=== PATIENT | female | born 1970 | race Caucasian/White ===

== ENCOUNTER → 2024-03-20 12:45 | Outpatient (REF) | payer OTHER, SELFPAY | LOC: HWRAD 12:45 | PROVIDERS: ATTENDING PHYSICIAN Internal Medicine; FAMILY PHYSICIAN Family Medicine | DX: D75.81 Myelofibrosis (principal); R16.1 Splenomegaly, not elsewhere classified | CPT/HCPCS: 76705 ==

== ENCOUNTER → 2024-10-02 11:10 | Outpatient (REF) | payer OTHER, SELFPAY | LOC: WDC 11:10 | PROVIDERS: ATTENDING PHYSICIAN Nurse Practitioner Family | DX: Z12.31 Encounter for screening mammogram for malignant neoplasm of breast (principal) | CPT/HCPCS: 77063; 77067 ==

== ENCOUNTER → 2025-01-13 11:17 | Outpatient (REF) | payer OTHER, MEDICARE, SELFPAY | LOC: RAD 11:17 | PROVIDERS: ATTENDING PHYSICIAN Family Medicine; FAMILY PHYSICIAN Nurse Practitioner Family | DX: M79.645 Pain in left finger(s) (principal) | CPT/HCPCS: 73130 ==

== ENCOUNTER 2025-02-24 23:30 | Emergency (ER) | payer OTHER, MEDICARE, SELFPAY ==
[2025-02-24 23:33] VITALS: BP 146/89
--- NOTE | 2025-02-25 00:01 | ED.GENMED ---
History of Present Illness
General
Chief Complaint: Dental Problem
Source: patient
Exam Limitations: none
Time Seen by Provider: 02/24/25 23:58
Nursing documentation reviewed up to this point in time: agreed with
History of Present Illness
History of Present Illness:
54-year-old female with a past medical history of migraines, primary myelofibrosis, ADHD, anxiety, dental caries who presents to the emergency department today with concerns of left upper dental pain. Patient reports that she is starting to have
this pain a few days ago as well as left-sided facial pain which started to radiate into the head. Patient states that she does have a history of migraines but she has never had a headache this bad before and [id number] medications have not
helped with the headache much. Patient went to her dentist today for the symptoms and she got an exam is determined that she needs her 14 tooth removed. Her dentist started her on clindamycin and gave her information and follow up for [facility] to have
her her teeth pulled in the next 10 days or so. She feels like the left side of her face is swollen. She denies fevers or chills, blurry vision, visual loss, nausea or vomiting, facial erythema, trismus, hoarseness/change in her voice, tongue or lip
swelling.
Past History
Past History
ED Past Medical History: Psychiatric (Anxiety/depression), Other (ADHD), Other (Chronic neck pain) and Other (Reflex sympathetic dystrophy, bilateral carpal tunnel, bilateral leg paresthesias)
ED Past Surgical History: Tonsilectomy
Social History
Tobacco: Smoker
Alcohol: Occasional
Personal: Single
Living: with family
Employment: Employed
Family History
Family History: Other (Mother with ovarian cancer)
Review of Systems
Review of Systems
All Other Systems: ROS reviewed and negative except as documented in HPI and ROS
Phy Exam
Physical Exam
Physical Exam:
General: Patient is well appearing and in no acute distress; non-toxic
Skin: Warm and dry, no facial erythema or swelling
Head: Normocephalic, atraumatic, no facial asymmetry. TMJ joints intact bilaterally.
Eyes: Sclera non-icteric. EOMs intact. PERRLA.
Mouth: Dental caries and mild gingival swelling noted to tooth 14 with no evidence of abscess, no purulent drainage. No bulging, tenderness, or firmness in the submental space. No trismus, normal speech.
Neck: No cervical adenopathy, no preauricular adenopathy
Cardiac: Regular rate and rhythm, no murmurs
Peripheral Vascular: No lower extremity swelling or edema
Pulm: Normal respiratory effort, no wheezes, rales, or rhonchi
Neuro: CN II-XII intact, no focal neurologic deficits.
Psychiatric: Appropriate mood and affect.
Course
Orders/Labs/Results
Orders:
Orders
02/25/25 00:11
IV Insert/Care/Rem.- Treatment PRN
Ketorolac [Toradol] 30 mg IV NOW STA
02/25/25 00:12
CT Facial Bones W/o Iv Contras Urgent
Comment:
Reason For Exam: left sided facial pain/swelling
CT Head W/o Iv Contrast Urgent
Comment:
Reason For Exam: headache, neck pain, visual changes
02/25/25 00:21
Bupivacaine HCl/Epinephrine [Marcaine 0.5% W/Epi [facility]] 1 cartridge INJ OR ONE
02/25/25 00:43
Bupivacaine HCl/Epinephrine [Marcaine 0.5% W/Epi [facility]] 1 cartridge .ROUTE .STK-MED ONE
02/25/25 00:49
Complete Blood Count/With Diff Urgent
Comprehensive Metabolic Panel Urgent
02/25/25 01:08
Metoclopramide [Reglan] 10 mg IV NOW STA
Abnormal Lab Results
02/25/25
00:49
WBC 13.1 H 10^3/uL
(4.8-10.8)
MCH 26.3 L pg
(27.0-31.0)
MCHC 31.9 L g/dL
(33.0-37.0)
RDW 15.5 H %
(11.5-14.5)
Plt Count 904 H 10^3/uL
(130-400)
Abs Immat Gran (auto) 0.2 H 10^3/uL
(0-0.05)
Absolute Neuts (auto) 8.2 H 10^3/uL
(1.4-6.5)
Absolute Monos (auto) 0.9 H 10^3/uL
(0.1-0.6)
Immature Gran % 1.1 H %
(0-0.5)
Chloride 109 H mmol/L
(98-107)
Glucose 113 H mg/dl
(70-99)
02/25/25 00:49
02/25/25 00:49
Vital Signs
Initial and Last Documented VS:
Initial Vital Signs
Temp Pulse Resp BP Pulse Ox
97.9 F 76 20 146/89 99
02/24/25 23:33 02/24/25 23:33 02/24/25 23:33 02/24/25 23:33 02/24/25 23:33
Last Documented Vital Signs
Temp Pulse Resp BP Pulse Ox
97.9 F 56 20 119/77 98
02/24/25 23:33 02/25/25 02:36 02/25/25 02:36 02/25/25 02:36 02/25/25 02:36
MDM/Problems Addressed
Differential Diagnosis Includes:
ddx include dental infection, dental abscess, dental caries, cellulitis, fluid collection, tension headache, migraine headache, space occupying lesion
MDM/Problems Addressed:
54-year-old female with a past medical history of migraines, primary myelofibrosis, ADHD, anxiety, dental caries who presents to the emergency department today with concerns of left upper dental pain. Patient reports that she is starting to have
this pain a few days ago as well as left-sided facial pain which started to radiate into the head. She went to her dentist and was started on clindamycin. She started the clindamycin today and had 3 doses. On physical exam, she is well appearing, in
no acute distress, does have caries and mild gingival swelling noted to tooth 14 with no evidence of abscess, no purulent drainage. No bulging, tenderness, or firmness in the submental space. No trismus, normal speech. Patient's mother has a history
of brain cancer and patient was concerned that she may have this especially since this is a different migraine for her, CT scan of the head obtained which shows no evidence of space-occupying lesion, no bleeding. CT scan of the patient no evidence
of fluid collection. Suspect dental infection with no evidence of dental abscess, patient was numbed with bupivacaine help with pain and she was given a dose of Toradol as well. As well as Reglan for headache. Patient does have a leukocytosis
likely in the setting of infection, she does have a history of primary myelofibrosis patient stable for discharge.
Chronic conditions affecting care:
primary myelofibrosis, migraines, ADHD, anxiety
*Pulse Oximetry
Patient hypoxic: no
*Critical Care Note
Total Time (30-74mins, 75-104mins- exclusive of procedures): Not Applicable
Data Reviewed
Review of Other/Old Records Reveals: Records (Reviewed ER physician documentation from 05/29/2022 patient seen for back pain, no discharge summary [facility] review)
Source: patient and records
ED Attending Note
-
Portions of this chart may have been created with voice recognition software.� Occasional wrong word or��sound alike� substitutions may have occurred due to the inherent limitations of voice recognition software.
Discharge Plan
Departure
Patient Disposition: Home (Routine Discharge)
Date of Disposition: 02/25/25
Time of Disposition: 02:00
Patient with high blood pressure during this ER visit?: Yes
Condition: Good
Discharge Problem:
Dental infection, Migraine
Instructions: Headache in adults - ED discharge instructions, Dental pain - ED discharge instructions, BLOOD PRESSURE
Prescriptions:
No Action
dextroamphetamine-amphetamine 30 MG tablet
30 mg PO BID
Patient Comments:
Patient states ran out of medication one month ago.
indomethacin 50 MG capsule
50 mg PO TID Qty: 15 0RF
gabapentin [Gabarone] 300 MG tablet
300 mg PO TID Qty: 30 0RF
gabapentin 600 MG tablet
600 mg PO TID Qty: 30 0RF
prednisone 50 MG tablet
50 mg PO Daily Qty: 4 0RF
triamcinolone acetonide [Kenalog] 20 GM cream
20 gm TP BID Qty: 1 0RF
Rx Instructions:
apply a thin film to affected areas 2-4 times a day, avoid face/genitals
hydroxyzine HCl 25 MG tablet
25 mg PO QID PRN (Reason: itching) Qty: 30 0RF
prednisone 10 MG tablet
10 mg PO .TAPER Qty: 30 0RF
Rx Instructions:
Take 40mg daily x3days, 30mg daily x3days,
20mg daily x3days, 10mg daily x3days.
hydroxyzine HCl 25 MG tablet
25 mg PO QIDPRN PRN (Reason: itching) Qty: 20 0RF
sulfamethoxazole-trimethoprim 1 TABLET tablet
1 tab PO BID Qty: 14 0RF
prednisone 10 MG tablet
10 mg PO .TAPER Qty: 30 0RF
Rx Instructions:
Take 40mg daily x3days, 30mg daily x3days,
20mg daily x3days, 10mg daily x3days.
methylprednisolone [Medrol (Altaf)] 4 MG tablets,dose pack
4 tab PO . DIRECT Qty: 1 0RF
prednisone 20 MG tablet
40 mg PO DAILY Qty: 8 0RF
diazepam [Valium] 5 mg tablet
5 mg PO BID PRN (Reason: muscle spasm) Qty: 14 0RF
Referrals:
Keya Jiménez MD [Family Provider] -
Activity Restrictions/Additional Instructions:
Your CT scan of the head did not show any evidence of acute bleeding or prior stroke. Your CT scan of your face not show any evidence of a collection of fluid.
Please continue to take your clindamycin. Please call your oral surgeon later today to schedule an appointment.
The bupivacaine should last a few more hours.
Ibuprofen 600 mg every 6 hours as needed for the next few days with food, please do not exceed 3200 mg/day.
PLEASE RETURN TO EMERGENCY DEPARTMENT SHOULD YOU DEVELOP CHEST PAIN, SHORTNESS OF BREATH, DIFFICULTY SWALLOWING, TROUBLE BREATHING, MUFFLED VOICE, ASYMMETRIC FACIAL SWELLING, ELEVATION OF THE TONGUE, DROOLING, OR ANY OTHER SIGNS OR SYMPTOMS
WORRISOME TO YOU.
Interventions
Interventions:
*Risk Screen - Suicide Last Done: 02/24/25 23:33
*General Assessment Last Done: 02/24/25 23:33
*Neglect/Abuse Screening Last Done: 02/24/25 23:33
*ED- Fall Risk Assessment Last Done: 02/25/25 02:36
*ED COVID-19 Vaccine History Last Done: 02/24/25 23:33
*Nursing Disposition Last Done: 02/25/25 02:36
Discharge Date and Time
Discharge Date/Time: 02/25/25 02:35
Print Language: URDU
[2025-02-25] MEDS: MARCAINE 0.5% W/EPI DENTAL CARTDRIDGE 1 CARTRIDGE INJ (00:44)
[2025-02-25] MEDS: TORADOL 30 MG IV (00:49)
[2025-02-25 01:04] LABS: % Basophils 1.2 % (0-2); % Eosinophils 3.5 % (0-6); % Immature Granulocytes 1.1 % (0-0.5); % Lymphocytes 24.3 % (20.5-51.1); % Monocytes 6.9 % (1.7-9.3); Absolute Basophils 0.2 10^3/uL (0-0.2); Absolute Eosinophils 0.5 10^3/uL (0-0.7); Absolute Immature Granulocytes 0.2 10^3/uL (0-0.05); Absolute Lymphocytes 3.2 10^3/uL (1.2-3.4); Absolute Monocytes 0.9 10^3/uL (0.1-0.6); Absolute Neutrophils 8.2 10^3/uL (1.4-6.5); Hematocrit 42.7 % (37.0-47.0); Hemoglobin 13.6 g/dL (12.0-16.0); Mean Corp Hgb Conc. 31.9 g/dL (33.0-37.0); Mean Corpuscular Hgb 26.3 pg (27.0-31.0); Mean Corpuscular Volume 82.6 fL (81.0-99.0); Mean Platelet Volume 9.5 fL (7.4-10.4); Nucleated Red Blood Cells % 0 %; Platelet Count 904 10^3/uL (130-400); Red Blood Cell Count 5.17 10^6/uL (4.20-5.40); Red Cell Dist. Width 15.5 % (11.5-14.5); White Blood Cell Count 13.1 10^3/uL (4.8-10.8)
[2025-02-25] MEDS: REGLAN 10 MG IV (01:14)
[2025-02-25 01:17] LABS: ALT (SGPT) 19 U/L (0-35); AST (SGOT) 21 U/L (14-36); Albumin 4.3 g/dl (3.5-5.0); Alkaline Phosphatase 103 U/L (38-126); Blood Urea Nitrogen 17 mg/dl (7-17); Calcium 9.5 mg/dl (8.4-10.2); Carbon Dioxide 23 mmol/L (22-30); Chloride 109 mmol/L (98-107); Glucose 113 mg/dl (70-99); Sodium 141 mmol/L (135-145); Total Bilirubin 0.4 mg/dl (0.2-1.3); Total Protein 6.7 g/dl (6.3-8.2); eGFR > 60.00
[2025-02-25 02:36] VITALS: BP 119/77
== END 2025-02-25 02:35 | disposition home or self-care (01) ==
LOC: EMR 23:30
PROVIDERS: Physician Assistant; EMERGENCY PHYSICIAN Student in an Organized Health Care Education/Training Program; FAMILY PHYSICIAN Family Medicine
DX: K04.7 Periapical abscess without sinus (principal); G43.909 Migraine, unspecified, not intractable, without status migrainosus; F17.200 Nicotine dependence, unspecified, uncomplicated; G89.29 Other chronic pain
CPT/HCPCS: 96374; 96375; 99284; 70450; 70486; 80053; 85025

== ENCOUNTER → 2025-04-13 07:30 | Outpatient (REF) | payer OTHER, MEDICARE, SELFPAY | LOC: HWRAD 07:30 | PROVIDERS: ATTENDING PHYSICIAN Internal Medicine; FAMILY PHYSICIAN Nurse Practitioner Family | DX: R16.1 Splenomegaly, not elsewhere classified (principal); D75.81 Myelofibrosis | CPT/HCPCS: 76705 ==

== ENCOUNTER → 2025-04-21 13:43 | Outpatient (REF) | payer OTHER, MEDICARE, SELFPAY | LOC: RCS 13:43 | PROVIDERS: ATTENDING PHYSICIAN Nurse Practitioner Family | DX: N76.0 Acute vaginitis (principal); M25.551 Pain in right hip; M25.571 Pain in right ankle and joints of right foot; G89.29 Other chronic pain; F90.2 Attention-deficit hyperactivity disorder, combined type; G47.00 Insomnia, unspecified; R20.2 Paresthesia of skin; M25.572 Pain in left ankle and joints of left foot | CPT/HCPCS: 73502; 73630; 93005 ==

== ENCOUNTER → 2025-05-11 11:35 | Outpatient (REF) | payer MEDICARE, OTHER, SELFPAY | LOC: RAD 11:35 | PROVIDERS: ATTENDING PHYSICIAN Nurse Practitioner Family | DX: M25.572 Pain in left ankle and joints of left foot (principal) | CPT/HCPCS: 73630 ==

== ENCOUNTER 2025-06-30 00:48 | Emergency (ER) | payer MEDICARE, OTHER, SELFPAY ==
[2025-06-30 01:06] VITALS: BP 127/87
--- NOTE | 2025-06-30 04:01 | ED.GENMED ---
History of Present Illness
General
Chief Complaint: Skin Problem
Source: patient
Time Seen by Provider: 06/30/25 03:37
History of Present Illness
History of Present Illness:
55-year-old female presents emergency department with complaints of a rash that she noted on her buttocks, lower legs, right side of her face, and abdomen. This started at least a week ago, and is associated with intense itching. She states that
she thinks it is related to potentially her dog who she sleeps with. She denies chest pain, shortness of breath, abdominal pain, lip or tongue swelling, fever, chills, recent tick bites, drainage, streaking, or other complaints. Patient also notes
that she had a 10-minute episode today where she felt lightheaded and 'panicky' associated with a metallic taste in her mouth, all now fully resolved.
Past History
Past History
ED Past Medical History: Psychiatric (Anxiety/depression), Other (ADHD), Other (Chronic neck pain) and Other (Reflex sympathetic dystrophy, bilateral carpal tunnel, bilateral leg paresthesias)
ED Past Surgical History: Tonsilectomy
Social History
Tobacco: Smoker
Alcohol: Occasional
Drug: None
Personal: Single
Living: with family
Employment: Employed
Family History
Family History: Other (Mother with ovarian cancer)
Phy Exam
Physical Exam
Physical Exam:
GENERAL: Alert , in no apparent distress
EYE: pupils equal and reactive
NECK: Supple, no significant adenopathy.
ENT: o/p clr, mmm.
CARDIAC: Regular rate and rhythm .
LUNGS: Clear breath sounds bilaterally, no acute respiratory distress, no wheezes/rales/rhonchi
ABDOMEN: Soft, without focal tenderness, no r/g, no cvat
NEUROLOGICAL: Alert and oriented, no focal neuro deficits
SKIN: Warm and dry, there are areas of folliculitis noted at the buttock area bilaterally without associated fluctuance, drainage, open wounds, streaking, or other abnormalities. On the lower extremity, patient has healing scabs bilaterally which I
suspect is related to scratching without secondary infection. No specific findings noted on face or abdomen.
MUSCULOSKELETAL: No edema, well perfused.
PSYCH: Normal and appropriate interaction.
Course
Orders/Labs/Results
Orders:
Orders
06/30/25 01:44
EKG [Electrocardiogram (*1)] Urgent
Reason for Study: Fatigue / Weakness
06/30/25 01:45
EKG- Treatment ONCE
06/30/25 04:58
Doxycycline [Vibramycin] 100 mg .ROUTE .STK-MED ONE
06/30/25 04:59
Doxycycline [Vibramycin] 100 mg PO NOW STA
Vital Signs
Initial and Last Documented VS:
Initial Vital Signs
Temp Pulse Resp BP Pulse Ox
98.9 F 92 20 127/87 98
06/30/25 01:06 06/30/25 01:06 06/30/25 01:06 06/30/25 01:06 06/30/25 01:06
Last Documented Vital Signs
Temp Pulse Resp BP Pulse Ox
98.9 F 75 24 148/100 100
06/30/25 01:06 06/30/25 05:05 06/30/25 05:05 06/30/25 05:05 06/30/25 05:05
*Pulse Oximetry
SaO2: 98
Oxygen Mode of Delivery: Room air
Patient hypoxic: no
*Critical Care Note
Total Time (30-74mins, 75-104mins- exclusive of procedures): Not Applicable
Update Note
Update Note:
Patient presents to the Emergency Department with ____rash
Number and Complexity of Problems Addressed at the Encounter
� Chronic conditions affecting care:
� Acute Exacerbation and/or Progression of Chronic Illness:
� Differential Diagnosis includes: But not limited to allergic reaction, environmental exposure, folliculitis, bug bites, etc. etc.
Amount and/or Complexity of Data to be Reviewed and Analyzed
� I performed an independent evaluation of and my interpretation is:
EKG: Read by me, normal sinus rhythm, normal rate, normal axis, no acute ischemia
CT:
Xrays:
Laboratory Studies:
Other:
� Review of other/old records reveals:
� Clinical information was obtained by an independent historian:
� Prescriptions/Medications Considered but not given:
� Further testing considered but not performed:
Risk of Complications and/or Morbidity or Mortality of Patient Management
� Social determinants of health affecting care:
� Discussion with other providers (PCP, Hospitalists, Consultants, etc):
� Escalation of care including admission/observation vs risk of discharge considered: Clinically suspect folliculitis, no systemic symptoms to suggest more worrisome etiology. History and physical not suggestive of tickborne
illness. Will prescribe a course of doxycycline with recommendations for close follow-up.
ED Attending Note
-
Portions of this chart may have been created with voice recognition software.� Occasional wrong word or��sound alike� substitutions may have occurred due to the inherent limitations of voice recognition software.
Discharge Plan
Departure
Patient Disposition: Home (Routine Discharge)
Date of Disposition: 06/30/25
Time of Disposition: 04:05
Patient with high blood pressure during this ER visit?: Yes
Condition: Good
Discharge Problem:
Folliculitis
Instructions: Bacterial folliculitis, BLOOD PRESSURE
Prescriptions:
New
doxycycline hyclate 100 mg capsule
100 mg PO BID Qty: 14 0RF
No Action
dextroamphetamine-amphetamine 30 MG tablet
30 mg PO BID
Patient Comments:
Patient states ran out of medication one month ago.
indomethacin 50 MG capsule
50 mg PO TID Qty: 15 0RF
gabapentin [Gabarone] 300 MG tablet
300 mg PO TID Qty: 30 0RF
gabapentin 600 MG tablet
600 mg PO TID Qty: 30 0RF
prednisone 50 MG tablet
50 mg PO Daily Qty: 4 0RF
triamcinolone acetonide [Kenalog] 20 GM cream
20 gm TP BID Qty: 1 0RF
Rx Instructions:
apply a thin film to affected areas 2-4 times a day, avoid face/genitals
hydroxyzine HCl 25 MG tablet
25 mg PO QID PRN (Reason: itching) Qty: 30 0RF
prednisone 10 MG tablet
10 mg PO .TAPER Qty: 30 0RF
Rx Instructions:
Take 40mg daily x3days, 30mg daily x3days,
20mg daily x3days, 10mg daily x3days.
hydroxyzine HCl 25 MG tablet
25 mg PO QIDPRN PRN (Reason: itching) Qty: 20 0RF
sulfamethoxazole-trimethoprim 1 TABLET tablet
1 tab PO BID Qty: 14 0RF
prednisone 10 MG tablet
10 mg PO .TAPER Qty: 30 0RF
Rx Instructions:
Take 40mg daily x3days, 30mg daily x3days,
20mg daily x3days, 10mg daily x3days.
methylprednisolone [Medrol (Altfa)] 4 MG tablets,dose pack
4 tab PO . DIRECT Qty: 1 0RF
prednisone 20 MG tablet
40 mg PO DAILY Qty: 8 0RF
diazepam [Valium] 5 mg tablet
5 mg PO BID PRN (Reason: muscle spasm) Qty: 14 0RF
Referrals:
Nicci Duarte CRNP [Family Provider, Family Practice] - Follow up in 2-3 days
Activity Restrictions/Additional Instructions:
IF YOU DEVELOP FEVER, DRAINAGE, INCREASING OR NEW RASH, LIP OR TONGUE SWELLING, GET WORSE, DO NOT GET BETTER, OR OTHER WORRISOME SIGNS, PLEASE RETURN TO THE ER IMMEDIATELY!
Interventions
Interventions:
*Risk Screen - Suicide Last Done: 06/30/25 01:06
*General Assessment Last Done: 06/30/25 01:52
*Neglect/Abuse Screening Last Done: 06/30/25 01:52
*ED- Fall Risk Assessment Last Done: 06/30/25 01:52
*ED COVID-19 Vaccine History Last Done: 06/30/25 01:52
*Nursing Disposition Last Done: 06/30/25 05:05
ED-Skin Assessment Last Done: 06/30/25 01:55
Discharge Date and Time
Discharge Date/Time: 06/30/25 05:05
Print Language: [email or web address]
[2025-06-30] MEDS: VIBRAMYCIN 100 MG PO (05:00)
[2025-06-30 05:05] VITALS: BP 148/100
== END 2025-06-30 05:05 | disposition home or self-care (01) ==
LOC: EMR 00:48
PROVIDERS: EMERGENCY PHYSICIAN Emergency Medicine; FAMILY PHYSICIAN Nurse Practitioner Family
DX: L73.9 Follicular disorder, unspecified (principal); F41.9 Anxiety disorder, unspecified; F32.A Depression, unspecified; F90.9 Attention-deficit hyperactivity disorder, unspecified type; M54.2 Cervicalgia; G89.29 Other chronic pain; G90.50 Complex regional pain syndrome I, unspecified; F17.200 Nicotine dependence, unspecified, uncomplicated
CPT/HCPCS: 99283; 93005

== ENCOUNTER → 2025-10-05 12:27 | Outpatient (REF) | payer MEDICARE, OTHER, SELFPAY | LOC: WDC 12:27 | PROVIDERS: ATTENDING PHYSICIAN Nurse Practitioner Family | DX: Z12.31 Encounter for screening mammogram for malignant neoplasm of breast (principal) | CPT/HCPCS: 77063; 77067 ==

== ENCOUNTER → 2025-10-09 15:27 | Outpatient (REF) | payer MEDICARE, OTHER, SELFPAY | LOC: MRI 3T 15:27 | PROVIDERS: ATTENDING PHYSICIAN Physician Assistant; FAMILY PHYSICIAN Nurse Practitioner Family | DX: R92.30 Dense breasts, unspecified (principal) | CPT/HCPCS: 77049; A9585 ==

== ENCOUNTER → 2025-10-28 06:41 | Outpatient (REF) | payer MEDICARE, OTHER, SELFPAY | LOC: RAD 06:41 | PROVIDERS: ATTENDING PHYSICIAN Physician Assistant; FAMILY PHYSICIAN Nurse Practitioner Family | DX: K76.9 Liver disease, unspecified (principal) | CPT/HCPCS: 74177; Q9967 ==